=== PATIENT | male | born 1960 | race Caucasian/White ===

== ENCOUNTER 2018-03-12 10:29 | Inpatient (IN) | payer BC ==
--- NOTE | 2018-03-01 21:35 | HP ---
HISTORY AND PHYSICAL: DATE OF SURGERY: 03/12/18 DATE OF OFFICE VISIT: 02/27/18 SURGEON: Chanel Jones MD * (DICTATED BY ADEBAYO MCBRIDE) PROCEDURE: Left total hip arthroplasty. CHIEF COMPLAINT: Left hip pain. HISTORY OF PRESENT ILLNESS: Mr. Chow is a 58-year-old gentleman with complaints of left hip pain. He has failed conservative management and elected to proceed with a left total hip arthroplasty, which is scheduled for 03/12/[address] Jones. PAST MEDICAL HISTORY: Hypertension, high cholesterol, sleep apnea. PAST SURGICAL HISTORY: Unknown prior left hip surgery and hernia repair. CURRENT MEDICATIONS: 1. Claritin 10 mg daily. 2. Flonase as needed. 3. Atorvastatin calcium 20 mg q.h.s. 4. Amlodipine/benazepril 10/40 mg daily. 5. Ciprodex ear drops as needed. 6. Aleve as needed. ALLERGIES: None. FAMILY HISTORY: Diabetes and dementia. SOCIAL HISTORY: He is a 58-year-old gentleman, lives with his . He does not smoke or use drugs. He uses occasional alcohol. REVIEW OF SYSTEMS: A complete 14-point of review of systems is reviewed with the patient. It was all negative or noncontributory. He denies history of DVT , PE, hepatitis, HIV or anesthesia problems. PHYSICAL EXAMINATION GENERAL: He is a well developed, well nourished in no acute distress. VITAL SIGNS: He stands 5 feet 5 inches tall, weighs 218 pounds. His blood pressure is 124/80, heart rate is 76. HEENT: Normocephalic, atraumatic. NECK: Supple. No palpable lymph nodes. PULMONARY: Lungs are clear to auscultation bilaterally. CARDIO: Regular rate and rhythm. Strong S1, S2. ABDOMEN: Soft, nontender, and nondistended. NEUROLOGIC: He is alert and oriented x3. Cranial nerves II through XII are intact. MUSCULOSKELETAL: Left lower extremity, the skin is intact. There are no open wounds or abrasions. He walks with an antalgic type gait favoring his left hip. He has decreased internal and external rotation of the left hip. 2+ dorsalis pedis pulses. Intact sensation in his lower extremities. Muscle group strengths are intact at 5/5. ASSESSMENT AND PLAN: Mr. Chow is a 58-year-old gentleman with complaints of left hip pain secondary to end-stage osteoarthritis. He has failed conservative management and elected to proceed with a left total hip arthroplasty, which is scheduled with Dr. Jones on 03/12/18. Dr. Jones discussed the risks and benefits of the surgery at today's visit and all of his questions were answered. He will follow up with Dr. Jones 2 weeks after the surgery. ADEBAYO MCBRIDE [id number]/[facility] #: [id number] MTDD
[~2018-03-12 10:29] MED LIST: Buffered Lidocaine 0.9% SYRIN* 5 ML/SYR SYRINGE INTRADERM ONE
[2018-03-12] MEDS ORDERED: Buffered Lidocaine 0.9% SYRIN* 5 ML/SYR SYRINGE ONE ×2 (10:40→10:57)
[2018-03-12] MEDS ORDERED: ceFAZolin 2 GM PREMIX (*) 0 GM/0 ML BAG IVPB ONE (10:40)
[2018-03-12] MEDS ORDERED: ceFAZolin 2 GM PREMIX (*) 2 GM/50 ML BAG IVPB ONE (10:57)
[2018-03-12] MEDS ORDERED: Midazolam* 1 MG/ML 5 ML VIAL (5 MG) ONE ×2 (13:03→13:53)
[2018-03-12] MEDS ORDERED: fentaNYL* 50 MCG/ML 2 ML VIAL (100 MCG VIAL) ONE (13:28)
[2018-03-12] MEDS ORDERED: Dexamethasone IV* 4 MG/ML 1 ML (4 MG) ONE (13:45)
[2018-03-12] MEDS ORDERED: Phenylephrine IV* 40 MCG/ML 10 ML SYRINGE ONE (14:36)
--- NOTE | 2018-03-12 15:28 | RAD ---
INDICATION: Left hip arthroplasty COMPARISON: None TECHNIQUE: Crosstable lateral portable view left hip was obtained for operative control FINDINGS: There is placement of the acetabular cup and the femoral stem is been placed for sizing.
[2018-03-12] MEDS ORDERED: diPHENhydraMINE IV* 50 MG/ML 1 ml VIAL (BENADRYL) IV PRN (16:07)
[2018-03-12] MEDS ORDERED: Morphine VIAL* 4 MG/ML VIAL (1 ml vial) IV PRN (16:07)
[2018-03-12] MEDS ORDERED: Ondansetron 40 MG VIAL* 2 MG/ML 20 ML VIAL IV PRN (16:07)
[2018-03-12] MEDS ORDERED: Bisacodyl SUPP* 10 MG SUPP PR PRN (16:07)
[2018-03-12] MEDS ORDERED: Acetaminophen TAB* 325 MG PO PRN (16:07)
[2018-03-12] MEDS ORDERED: Cyclobenzaprine TAB* 10 MG PO PRN (16:07)
[2018-03-12] MEDS ORDERED: Magnesium Hydroxide LIQ* 30 ML UDC PO PRN (16:07)
[2018-03-12] MEDS ORDERED: HYDROcodone/ACETAMIN 5-325 MG* 1 TAB PO PRN (16:11)
[2018-03-12] MEDS ORDERED: Naloxone* 0.4 MG/ML 1 ML VIAL IV PRN (16:11)
[2018-03-12] MEDS ORDERED: fentaNYL* 50 MCG/ML 2 ML VIAL (100 MCG VIAL) IV PRN (16:11)
[2018-03-12] MEDS ORDERED: Ondansetron INJ* 2 MG/ML VIAL IV PRN (16:11)
[2018-03-12] MEDS ORDERED: HYDROmorphone INJ* 1 MG/ML CARPUJECT SYRINGE IV PRN (16:11)
[2018-03-12] MEDS ORDERED: oxyCODONE TAB* 5 MG TAB PO PRN (16:11)
[2018-03-12] MEDS ORDERED: Ondansetron ODT TAB* 4 MG PO PRN (16:11)
[2018-03-12] MEDS ORDERED: oxyCODONE/Acetamin 5/325 MG* TAB ONE (16:40)
[2018-03-12] MEDS: oxyCODONE/Acetamin 5/325 MG* TAB PO PRN ×2 (16:42→20:57)
--- NOTE | 2018-03-12 16:47 | RAD ---
INDICATION: The patient is status post left total hip arthroplasty TECHNIQUE: Portable AP view of the pelvis and 3 views of the left hip was obtained. FINDINGS: The recently installed left hip prosthesis is anatomically aligned in the AP and lateral projections. There is no radiographically visible periprosthetic fracture. Advanced degenerative changes are noted at the right hip including sclerotic bony remodeling of the femoral head and marginal osteophyte formation. IMPRESSION: Anatomic alignment of left hip prosthesis.
[2018-03-12] MEDS ORDERED: Warfarin TAB(*) 6 MG PO ONE (17:00)
[2018-03-12] MEDS ORDERED: hydrALAZINE IV* 20 MG/ML VIAL IV SLOW PU PRN (17:17)
[2018-03-12] MEDS: Magnesium Hydroxide LIQ* 30 ML UDC PO SCH (20:57)
[2018-03-12] MEDS: Docusate CAP* 100 MG PO SCH (20:59)
[2018-03-12] MEDS: ceFAZolin 1 GM in Dextrose (*) 1 GM/50 ML BAG IVPB SCH (21:09)
[2018-03-12] MEDS: oxyCODONE TAB* 5 MG TAB PO PRN (22:42)
--- NOTE | 2018-03-12 23:14 | CONS ---
CC: Dr. Thao; Dr. Jones * CONSULTATION REPORT: DATE OF CONSULT: 03/12/18 PRIMARY CARE PROVIDER: Dr. Thao ORTHOPEDIC SURGEON: Dr. Jones. REASON FOR CONSULT: Medical co-management. HISTORY OF PRESENT ILLNESS: Mr. Chow is a 58-year-old male who has a history of hypertension, hyperlipidemia, obstructive sleep apnea, not treated with positive pressure ventilation and allergic rhinitis who is seen today after he underwent an elective left total hip arthroplasty. The patient states that he is doing well. He does feel a little bit loopy and confused. He denies , however, any chest pain, shortness of breath, abdominal pain, nausea, vomiting or lightheadedness. He does state that he has a burning sensation to his left lateral hip where the incision is. The patient otherwise has no complaints at this time. PAST MEDICAL HISTORY: 1. Hypertension. 2. Hyperlipidemia. 3. Obstructive sleep apnea - not treated. PAST SURGICAL HISTORY: 1. Prior left hip surgery. 2. Hernia repair. HOME MEDICATIONS: 1. Claritin 10 mg p.o. daily. 2. Flonase as needed for allergic rhinitis. 3. Atorvastatin 20 mg p.o. q.h.s. 4. Amlodipine/benazepril 10/40 one tab p.o. daily. 5. Ciprodex ear drops as needed. 6. Aleve as needed ALLERGIES: None. FAMILY HISTORY: Positive for diabetes and dementia. SOCIAL HISTORY: The patient is . He lives with his . He does not smoke. He drinks alcohol on occasion. REVIEW OF SYSTEMS: A complete 11-system review of systems was obtained. Pertinent positives and negatives are as HPI and otherwise negative. PHYSICAL EXAM: Blood pressure 125/82, pulse 67, respirations 16, temp 98.2, O2 sat 96% on room air. General: The patient is a well-developed, obese, middle- aged male seen lying in the stretcher in the recovery unit, in no acute distress. HEENT: Pupils are equal and round. Extraocular muscles are intact. Oropharynx is clear. Oral mucosa is moist. There is no submandibular, cervical or supraclavicular adenopathy. Thyroid is not enlarged. No thyroid nodules noted. Cardiac: Normal S1, S2. Regular rate and rhythm. I do not appreciate any murmurs. There is no lower extremity edema. Pulmonary: Lungs are clear to auscultation anteriorly and at the lateral bases. Abdomen: Bowel sounds are present. Abdomen is soft, nontender, nondistended. Musculoskeletal : The patient moves both upper extremities symmetrically. Lower extremity range of motion is not tested. Skin is warm and dry. There are no rashes. There is a clean, dry dressing over the left lateral hip wound. Neuro: Cranial nerves II through XII are grossly intact. Sensation is intact to light touch throughout. Strength is 5/5 and symmetric in the upper extremities. Lower extremity strength is not tested as the patient is immediately postop. Psych: The patient is alert. He is oriented x3. Affect is appropriate. DIAGNOSTIC STUDIES/LAB DATA: None. ASSESSMENT AND PLAN: Mr. Chow is a 58-year-old male with a history of hypertension, hyperlipidemia and obstructive sleep apnea, who is seen immediately postop for medical co-management consultation. 1. Elective left total hip arthroplasty. Management per Orthopedics. 2. Hypertension. The patient's blood pressure is under excellent control. I am going to hold off on restarting his amlodipine/benazepril until tomorrow morning when I can evaluate his blood pressures. His blood pressures currently without the medication on-board are quite good. I assume tomorrow morning he will be more hypertensive, at which point it will be appropriate to add back his home medication. In the meantime, he will have p.r.n. hydralazine available for markedly elevated blood pressures overnight. 3. Hyperlipidemia. We will continue Lipitor. 4. Allergic rhinitis. We will continue the Claritin, but hold his Flonase, which can be resumed once he returns home. 5. DVT prophylaxis. The patient will be started on Lovenox tomorrow, 03/13/18. 6. Code status is full. TIME SPENT: Forty minutes were spent on this consultation. [id number]/[facility] #: [id number] JESSY
[2018-03-13] MEDS: ceFAZolin 1 GM in Dextrose (*) 1 GM/50 ML BAG IVPB SCH ×2 (05:23→14:54)
[2018-03-13] MEDS: oxyCODONE/Acetamin 5/325 MG* TAB PO PRN ×3 (06:13→21:14)
[2018-03-13 06:52] LABS: Hematocrit 40 % (42-52); Hemoglobin 13.8 g/dl (14.0-18.0); Mean Platelet Volume 7.2 um3 (7.4-10.4); Platelet Count 202 10^3/ul (150-450)
[2018-03-13 07:02] LABS: INR 0.98 (0.77-1.02)
[2018-03-13 07:13] LABS: EGFR Non-African American 74.8 (>60)
[2018-03-13] MEDS: Vitamin THERAPEUTIC TAB PO SCH (08:01)
[2018-03-13] MEDS: Docusate CAP* 100 MG PO SCH ×2 (08:01→21:14)
[2018-03-13] MEDS: oxyCODONE TAB* 5 MG TAB PO PRN ×2 (08:02→11:46)
--- NOTE | 2018-03-13 11:03 | PN ---
Progress Note - Progress Note Date of Service: 03/13/18 SOAP: Subjective: []Patient seen at bedside. He feels very well. Denies Chest pain, shortness of breath or dizziness. Objective: [] Vital Signs Temp 97.8 F 03/13/18 07:25 Pulse 82 03/13/18 07:25 Resp 20 03/13/18 08:02 BP 123/79 03/13/18 07:25 Pulse Ox 96 03/13/18 07:25 Intake & Output 03/12/18 03/13/18 03/13/18 18:59 06:59 18:59 Intake Total 3140 1500 360 Output Total 600 2075 225 Balance 2540 -575 135 Weight 215 lb Intake: IV Fluids 2900 950 LR 2900 950 IVPB 50 ABX - CEFAZOLIN 50 Oral 240 500 360 Output: Urine 225 Obrien 350 2075 Estimated Blood Loss 250 Laboratory Last Values Hgb 13.8 g/dl (14.0-18.0) L 03/13/18 06:28 Hct 40 % (42-52) L 03/13/18 06:28 Plt Count 202 10^3/ul (150-450) 03/13/18 06:28 MPV 7.2 um3 (7.4-10.4) L 03/13/18 06:28 INR (Anticoag Therapy) 0.98 (0.77-1.02) 03/13/18 06:29 Sodium 136 mmol/L (135-145) 03/13/18 06:28 Potassium 4.1 mmol/L (3.5-5.0) 03/13/18 06:28 Chloride 102 mmol/L (101-111) 03/13/18 06:28 Carbon Dioxide 25 mmol/L (22-32) 03/13/18 06:28 Anion Gap 9 mmol/L (2-11) 03/13/18 06:28 BUN 14 mg/dL (6-24) 03/13/18 06:28 Creatinine 1.02 mg/dL (0.67-1.17) 03/13/18 06:28 Est GFR ( Amer) 96.1 (>60) 03/13/18 06:28 Est GFR (Non-Af Amer) 74.8 (>60) 03/13/18 06:28 BUN/Creatinine Ratio 13.7 (8-20) 03/13/18 06:28 Glucose 190 mg/dL (70-100) H 03/13/18 06:28 Calcium 9.3 mg/dL (8.6-10.3) 03/13/18 06:28 General: Well appearing, NAD LLE: Dressing CDI without surrounding erythema. Thigh soft. DF/PF intact. Sensation intact distally. DP 2+. Capillary refill less than two seconds distally. BL LE: Calves supple and nontender without erythema, edema or palpable cords. Assessment: []POD 1 SP left total hip arthroplasty 03/13 Dr Jones Plan: []WBAT PT/OT Hip precautions Lovenox, Coumadin 6 mg today
[2018-03-13] MEDS: Atorvastatin* 20 MG TAB PO SCH (11:45)
[2018-03-13] MEDS: Enoxaparin(*) 40 MG/0.4 ML SYR SUBCUT SCH (11:46)
[2018-03-13] MEDS: Magnesium Hydroxide LIQ* 30 ML UDC PO SCH ×2 (11:47→21:13)
[2018-03-13] MEDS: CMCS LoraTADine TAB(NF) 10 MG TAB PO SCH (11:49)
--- NOTE | 2018-03-13 13:15 | OP ---
DATE OF OPERATION: 03/12/18 - ROOM #346 DATE OF : 58 SURGEON: Chanel Jones MD [employer]ERSON[employer] REP: ADEBAYO Beltran. Mr. Banegas did help throughout the procedure with preparation of the leg, wound retraction, manipulation of the hip and wound closure. ANESTHESIOLOGIST: Dr. Malone. ANESTHESIA: Spinal. 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 OPERATIVE PROCEDURE: Left total hip arthroplasty. ESTIMATED BLOOD LOSS: 300 cc. COMPLICATIONS: None. SPECIMENS: Femoral head and acetabular reaming sent to Pathology. HARDWARE USED: This is [employer]oca uncemented total hip arthroplasty hardware. For the cup, a Tritanium cluster hole shell 56D a single 20-mm cancellous bone screw. For the insert, a Trident X3 polyethylene insert 0-degree 36D. For the stem, an Accolade TMZF size 4 with a 132-degree neck. For the head, a Biolox delta ceramic V40 femoral head 36 +2.5. BRIEF HISTORY/INDICATION: Mr. Chow is a 58-year-old gentleman with years of severe left hip pain. As a young gentleman, he developed avascular necrosis of the left hip. He was treated surgically with a cord decompression that eventually went on to develop severe arthritis. The patient had failed conservative treatment with the anti-inflammatories, pain medication, and physical therapy. His radiographs showed severe end-stage avascular necrosis and joint space narrowing. Due to continued pain and decreased quality of life , he elected to undergo a left total hip arthroplasty. Informed consent was obtained from the patient. He understood the risks of surgery included, but were not limited to bleeding, infection, damage to nearby structures, continued pain, need for further surgery, intraoperative fracture, nerve palsy, hardware failure or loosening, dislocation, leg length discrepancy, stroke, heart attack , blood clot, and . He wished to proceed. INTRAOPERATIVE FINDINGS: Intraoperatively, the patient was noted to have severe end-stage arthritis. He had deformity of the femoral head. He had a complete loss of cartilage along the femoral head and acetabulum with extensive osteophyte formation around the acetabulum. DESCRIPTION OF PROCEDURE: Mr. Chow was identified in the preanesthesia unit. His left lower extremity was marked as the correct operative side. Informed consent was signed and placed in the chart. The patient was taken to the operating room and placed under spinal anesthesia. A Obrien catheter was placed. The patient was placed in a right lateral decubitus position on the pegboard. All bony prominences were well padded. Left lower extremity was prepped and draped in the usual sterile fashion. Preop time-out was made to correctly identify the patient's side and site. Appropriate perioperative antibiotics were given within 1 hour of incision. A 12-cm posterior hip incision was made with a 10 blade. New 10 blade was used to incise the lateral fascia in line with the skin incision. A Charnley retractor was placed. The piriformis and conjoint tendons were identified. These were elevated off the posterolateral femur and tagged with #5 Ethibond. Next, electrocautery was used to make a standard posterolateral capsular flap and this was also tagged with #5 Ethibond. The hip was carefully dislocated. Lesser troch to the center of the femoral head was estimated to be approximately 62 mm. Oscillating saw was used to make the femoral neck cut. The femur was carefully retracted anteriorly. After appropriate placement of retractors, the acetabulum was well visualized. Long-handled knife was used to remove any remaining labrum. The acetabulum was sequentially reamed up to a size 55. A 55 reamer obtained with bleeding subchondral bone bed. The 55 trial had excellent fit. Final implant chosen was a Tritanium cluster hole shell 56D. This was impacted into the acetabulum without difficulty. There was excellent stability as well as appropriate anteversion and abduction angle. A single 20-mm screw was placed in the superior posterior quadrant for extra stability. A 36E trident X3 0-degree polyethylene liner was chosen as the appropriate liner. This was impacted into the acetabulum without difficulty. Stability of the liner was checked and rechecked and noted to be stable. An osteotome was used to remove inferior and posterior osteophytes. Next, attention was turned to preparation of the femoral canal. Canal finder was used to enter the proximal femur. The femur was sequentially broached up to a size 4. Size 4 broach had excellent stability and appropriate anteversion. A 36 +0 femoral head was chosen as the trial. Lesser troch to the center of the femoral head measured approximately 60 mm. The hip was reduced and taken through a range of motion. The hip was stable in all positions. There was appropriate soft tissue tension and leg lengths. The hip was carefully dislocated. All trials were removed. Final implant chosen was an Accolade TMZF size 4 with a 132-degree neck. This was impacted into the femoral canal without difficulty. There was appropriate stability and anteversion. Final head chosen was a 36 +2.5 Biolox delta V40 femoral head. This was impacted on to the femoral neck. Lesser troch to the center of the femoral head measured 62 mm. The hip was reduced and taken through a range of motion. The hip was stable in all positions. Soft tissue tension was improved. The hip was carefully washed with sterile saline. Previously tagged tendons and capsule were reapproximated with a posterolateral femur through two trochanteric drill holes. The lateral fascial layer was closed using interrupted #1 Vicryls. The rest of the incision was closed in a layered fashion using 0 and 2-0 Vicryls. Skin was closed using running 3-0 Monocryl and Dermabond. Sterile Adaptic, 4x4s, and paper tape were used to cover the incision. The patient's anesthesia was reversed without difficulty. He was taken to the PACU in stable condition. Intended weightbearing will be weightbearing as tolerated. Intended DVT prophylaxis will be Coumadin with a Lovenox bridge. [id number]/[facility] #: [id number] JESSY
[2018-03-13] MEDS ORDERED: Warfarin TAB(*) 6 MG PO ONE (18:00)
[2018-03-14] MEDS: oxyCODONE TAB* 5 MG TAB PO PRN ×2 (02:55→11:06)
[2018-03-14 06:37] LABS: Hematocrit 34 % (42-52); Hemoglobin 11.8 g/dl (14.0-18.0); Mean Platelet Volume 6.9 um3 (7.4-10.4); Platelet Count 177 10^3/ul (150-450)
[2018-03-14 06:46] LABS: INR 1.29 (0.77-1.02)
[2018-03-14 08:16] VITALS: BP 123/75
[2018-03-14] MEDS: Docusate CAP* 100 MG PO SCH (08:21)
[2018-03-14] MEDS: oxyCODONE/Acetamin 5/325 MG* TAB PO PRN (08:21)
[2018-03-14] MEDS: Magnesium Hydroxide LIQ* 30 ML UDC PO SCH (08:21)
[2018-03-14] MEDS: Vitamin THERAPEUTIC TAB PO SCH (08:21)
--- NOTE | 2018-03-14 09:20 | PN ---
Progress Note - Progress Note Date of Service: 03/14/18 SOAP: Subjective: []Patient seen OOB in chair. He feels very well with minimal pain using both oxycodone and percocet. He desires DC home today. Denies chest pain, shortness of breath, dizziness or leg numbness. Objective: [] Vital Signs Temp 98.2 F 03/14/18 07:33 Pulse 83 03/14/18 07:33 Resp 16 03/14/18 08:21 BP 123/75 03/14/18 07:33 Pulse Ox 97 03/14/18 08:51 Intake & Output 03/13/18 03/14/18 03/14/18 18:59 06:59 18:59 Intake Total 1245 550 Output Total 875 1225 Balance 370 -675 Intake: IV Fluids 20 LR 20 IVPB 55 ABX - CEFAZOLIN 55 Oral 1170 550 Output: Urine 875 1225 Other: Estimated Void Large Laboratory Last Values Hgb 11.8 g/dl (14.0-18.0) L 03/14/18 06:13 Hct 34 % (42-52) L 03/14/18 06:13 Plt Count 177 10^3/ul (150-450) 03/14/18 06:13 MPV 6.9 um3 (7.4-10.4) L 03/14/18 06:13 INR (Anticoag Therapy) 1.29 (0.77-1.02) H 03/14/18 06:13 Sodium 136 mmol/L (135-145) 03/13/18 06:28 Potassium 4.1 mmol/L (3.5-5.0) 03/13/18 06:28 Chloride 102 mmol/L (101-111) 03/13/18 06:28 Carbon Dioxide 25 mmol/L (22-32) 03/13/18 06:28 Anion Gap 9 mmol/L (2-11) 03/13/18 06:28 BUN 14 mg/dL (6-24) 03/13/18 06:28 Creatinine 1.02 mg/dL (0.67-1.17) 03/13/18 06:28 Est GFR ( Amer) 96.1 (>60) 03/13/18 06:28 Est GFR (Non-Af Amer) 74.8 (>60) 03/13/18 06:28 BUN/Creatinine Ratio 13.7 (8-20) 03/13/18 06:28 Glucose 190 mg/dL (70-100) H 03/13/18 06:28 Calcium 9.3 mg/dL (8.6-10.3) 03/13/18 06:28 General: Well appearing, NAD LLE: Dressing CDI. Dressing changed. Incision CDI. Thigh soft. DF/PF intact. Sensation intact distally. DP 2+. Capillary refill less than two seconds distally. BL LE: Calves supple and nontender without erythema, edema or palpable cords. Assessment: []POD 2 SP left total hip arthroplasty 03/13 Dr Jones Plan: []WBAT PT/OT Hip precautions Lovenox, Coumadin 6 mg today DC to home today
[2018-03-14] MEDS: Atorvastatin* 20 MG TAB PO SCH (11:06)
[2018-03-14] MEDS: CMCS LoraTADine TAB(NF) 10 MG TAB PO SCH (11:06)
[2018-03-14] MEDS: Enoxaparin(*) 40 MG/0.4 ML SYR SUBCUT SCH (11:07)
--- NOTE | 2018-03-14 11:55 | PN ---
Subjective Date of Service: 03/14/18 - Time: 0830 Interval History: Pt is feeling well. He states he has been doing well with PT. He denies any CP or SOB. Objective Vital Signs - 8 hr 03/14/18 03/14/18 03/14/18 05:00 07:33 08:00 Temperature 98.2 F Pulse Rate 83 Respiratory 18 16 18 Rate Blood Pressure 123/75 (mmHg) O2 Sat by Pulse 97 97 Oximetry 03/14/18 03/14/18 03/14/18 08:21 08:51 11:01 Temperature Pulse Rate Respiratory 16 16 Rate Blood Pressure (mmHg) O2 Sat by Pulse 97 Oximetry 03/14/18 11:06 Temperature Pulse Rate Respiratory 18 Rate Blood Pressure (mmHg) O2 Sat by Pulse Oximetry Oxygen Devices in Use Now: None Appearance: Middle aged male sitting up in a recliner, NAD Eyes: No Scleral Icterus Ears/Nose/Mouth/Throat: Mucous Membranes Moist Respiratory: Symmetrical Chest Expansion and Respiratory Effort, Clear to Auscultation Cardiovascular: NL Sounds; No Murmurs; No JVD, RRR, No Edema Abdominal: NL Sounds; No Tenderness; No Distention Extremities: No Clubbing, Cyanosis Skin: No Nodules or Sclerosis Neurological: Alert and Oriented x 3 Result Diagrams: 03/14/18 06:13 03/13/18 06:28 Assess/Plan/Problems-Billing Mr Chow is a 58 yo M who has a h/o HTN, HLD and SHINE who was admitted post elective total hip replacement. - Patient Problems (1) Status post total replacement of left hip Status: Acute Code(s): Z96.642 - PRESENCE OF LEFT ARTIFICIAL HIP JOINT SNOMED Code(s): 403937219053 Comment: Management per orthopedics. (2) HTN (hypertension) Status: Acute Code(s): I10 - ESSENTIAL (PRIMARY) HYPERTENSION SNOMED Code(s) : 06107711 Comment: Under excellent control. Continue home medication regimen. (3) HLD (hyperlipidemia) Status: Acute Code(s): E78.5 - HYPERLIPIDEMIA, UNSPECIFIED SNOMED Code(s): 40182844 Comment: Continue lipitor. (4) DVT prophylaxis Status: Acute Code(s): FRY8189 - SNOMED Code(s): 569891540 Comment: Coumadin per orthopedics. (5) Full code status Status: Acute Code(s): Z78.9 - OTHER SPECIFIED HEALTH STATUS SNOMED Code(s) : 629002397 Status and Disposition: d/c home today per orthopedics
--- NOTE | 2018-03-15 08:51 | DS ---
DISCHARGE SUMMARY: DATE OF ADMISSION: 03/12/18 DATE OF DISCHARGE: 03/14/18 DATE OF OPERATION: 03/12/18 PROVIDER: Dr. 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 OPERATIVE PROCEDURE: Left total hip arthroplasty. HISTORY: Mr. Chow is a 58-year-old gentleman with years of increasingly severe left hip pain. As a young gentleman, he developed avascular necrosis of the left hip. He was treated surgically with a cord decompression that eventually went on to develop severe arthritis. The patient had failed conservative management and elected to undergo a left total hip arthroplasty. HOSPITAL COURSE: The patient was admitted to [facility] on . He underwent a left total hip arthroplasty without complication. He recovered briefly in the PACU and then was transferred to the short-stay surgical unit in stable condition. He was followed by hospitalist service, Physical Therapy, Occupational therapy during his stay. On postop day#1, he is well appearing, in no acute distress. His dressing was clean, dry, and intact without any surrounding erythema. Thigh was soft. Dorsiflexion and plantar flexion intact. Sensation was intact distally. DP pulse 2+. Capillary refill less than 2 seconds. Postop day#1, he was well appearing, in no acute distress. Vitals included a temperature of 98.2, pulse 83, respiratory rate 16 , blood pressure 123/75, pulse ox 97%. Hemoglobin 11.8, hematocrit of 34. INR 1.29. The patient's dressing was clean, dry, and intact. The dressing was changed. Incision clean, dry, and intact. The patient was deemed to be medically and orthopedically stable for discharge home. DISCHARGE MEDICATIONS: 1. Loratadine 10 mg p.o. daily. 2. Fluticasone nasal spray 50 mcg 2 sprays both nares q.a.m. 3. Atorvastatin 20 mg p.o. daily. 4. Lotrel 10/40 one cap p.o. daily. 5. Acetaminophen 650 mg p.o. q.4 hours p.r.n., max daily dose 4000 mg from all sources. 6. Docusate 100 mg p.o. b.i.d. p.r.n. 7. Oxycodone 5 mg tab, take 1 to 2 tabs every 4 hours as needed, max daily dose of 4. 8. Percocet 5/325 one to two tabs every 4 to 6 hours as needed, max daily dose of 10. 9. Warfarin 2 mg tablets, 1 to 3 tablets daily. Dose depends on INR. DISCHARGE INSTRUCTIONS: Weightbearing as tolerated. Hip precautions. Visiting nurse to do wound check and check INR on Mondays and . Last INR was 1.29. Dosing instructions for Coumadin: 03/14/18, 6 mg; 03/15/18, 4 mg; 03/16/18, 2 mg; 03/17/18, 4 mg. Pain control: Percocet 5/325 one to two tabs every 4 to 6 hours as needed for pain, max 10 tabs per day. Follow up with Dr. Jones in 10 to 14 days. ADEBAYO NARAYAN [id number]/[facility] #: [id number] MTDD
== END 2018-03-14 11:28 | disposition home health service (06) | DRG 301 ==
LOC: AA 10:29 → SSU 16:08
PROVIDERS: ADMIT Orthopaedic Surgery Adult Reconstructive Orthopaedic Surgery; ATTEND Orthopaedic Surgery Adult Reconstructive Orthopaedic Surgery
PROC: 0SRB04A Replacement of Left Hip Joint with Ceramic on Polyethylene Synthetic Substitute, Uncemented, Open Approach (ICD-10-PCS; principal; 2018-03-12 13:00)
DX: M16.0 Bilateral primary osteoarthritis of hip (principal); M87.852 Other osteonecrosis, left femur; I10 Essential (primary) hypertension; E78.00 Pure hypercholesterolemia, unspecified; G47.33 Obstructive sleep apnea (adult) (pediatric); E66.9 Obesity, unspecified; M25.752 Osteophyte, left hip; J30.9 Allergic rhinitis, unspecified; Z86.19 Personal history of other infectious and parasitic diseases; Z83.3 Family history of diabetes mellitus; Z82.0 Family history of epilepsy and other diseases of the nervous system; Z80.7 Family history of other malignant neoplasms of lymphoid, hematopoietic and related tissues; Z68.34 Body mass index [BMI] 34.0-34.9, adult; Z72.89 Other problems related to lifestyle; Z79.01 Long term (current) use of anticoagulants; Z81.8 Family history of other mental and behavioral disorders
CPT/HCPCS: 36415; 62325; 72170; 80048; 85014; 85018; 85049; 85610; 88304; 88311; A9270-GY; C1713; C1776; J0690; J1100; J1650; J2250; J3010

== ENCOUNTER 2024-08-08 09:15 | Observation (INO) ==
[~2024-08-08 09:15] MED LIST changes: -Buffered Lidocaine 0.9% SYRIN* 5 ML/SYR SYRINGE INTRADERM ONE; +Midazolam 2 mg/2 ml VIAL 1 mg/ml 2 ml VIAL (2 mg) ONE; +NS 0.45% 1000 ml BAG 1,000 ML IV SCH; +Naloxone 0.4 mg VIAL 0.4 mg/ml 1 ml VIAL IV PRN; +Ondansetron 4 mg VIAL 2 MG/ML 2 ml VIAL IV PRN; +fentaNYL 100 mcg/2 ml 50 MCG/ML VIAL IV PRN
[2024-08-08] MEDS: Buffered Lidocaine 1% SYRIN 1 ml INTRADERM ONE (09:38)
[2024-08-08] MEDS ORDERED: Dexamethasone IV 4 MG/ML VIAL 1 ml VIAL ONE (09:53)
[2024-08-08] MEDS ORDERED: Lidocaine 2% PF 5 ML VIAL ONE (09:53)
[2024-08-08] MEDS ORDERED: Rocuronium 50 mg VIAL 10 mg/ml 5 ml VIAL (50 mg) ONE (09:53)
[2024-08-08] MEDS ORDERED: Ondansetron 4 mg VIAL 2 MG/ML 2 ml VIAL ONE (09:53)
[2024-08-08] MEDS ORDERED: Propofol 10 MG/ML 20 ML BTL ONE (09:53)
[2024-08-08] MEDS ORDERED: fentaNYL 100 mcg/2 ml 50 MCG/ML VIAL ONE (09:53)
[2024-08-08 10:19] LABS: Rapid COVID-19 Molecular Undetected (Undetected)
[2024-08-08] MEDS ORDERED: ceFAZolin 2 GM PREMIX 2 GM/50 ML BAG ONE (10:28)
[2024-08-08] MEDS ORDERED: Tranexamic Acid 1 GM/100ML BAG 2,000 MG/200 ML BAG IV ONE (10:28)
[2024-08-08] MEDS: Lactated Ringers 1000 ml BAG 1,000 ML IV SCH ×2 (10:33→16:45)
[2024-08-08] MEDS ORDERED: ROPIVACAINE 5 MG/ML 30 ML BTL (0.5%) ONE (12:36)
[2024-08-08] MEDS ORDERED: Ondansetron 4 mg VIAL 2 MG/ML 2 ml VIAL IV PRN (13:27)
[2024-08-08] MEDS ORDERED: Calcium Carb (TUMS) 500 mg CHEW TAB PO PRN (13:27)
[2024-08-08] MEDS ORDERED: Lactulose 30 ml UDC PO PRN (13:27)
[2024-08-08] MEDS ORDERED: Ondansetron ODT 4 mg TAB 4 MG TAB PO PRN (13:27)
[2024-08-08] MEDS ORDERED: Magnesium Hydroxide LIQ 30 ML UDC PO PRN (13:27)
[2024-08-08] MEDS ORDERED: Morphine 2 MG/ML SYRINGE IV PRN (13:27)
[2024-08-08] MEDS: Acetaminophen IV 1 GM/100ML 1,000 MG/100 ML BAG IV ONE (17:50)
[2024-08-08] MEDS ORDERED: Dextrose 50% Syringe 50 ml 25 GM/50 ML SYRINGE IV PUSH PRN (19:40)
[2024-08-08] MEDS: Magnesium Hydroxide LIQ 30 ML UDC PO SCH (19:56)
[2024-08-08] MEDS: ceFAZolin 2 GM PREMIX 2 GM/50 ML BAG IV SCH (20:07)
[2024-08-09 06:17] LABS: Hematocrit 38.8 % (38-53); Hemoglobin 13.2 g/dL (13.2-16.3); Mean Platelet Volume 7.5 fL (7.5-11.2); Platelet Count 185 10^3/uL (150-450)
[2024-08-09 06:35] LABS: Calcium 9.1 mg/dL (8.6-10.3); Creatinine, Serum 1.05 mg/dL (0.67-1.17); Potassium 4.5 mmol/L (3.5-5.0); eGFR CKD-EPI 78.8 (>60)
[2024-08-09] MEDS: Vitamin THERAPEUTIC TAB PO SCH (08:06)
[2024-08-09] MEDS: Fluticasone NASAL SPRAY 50MCG 16 gm SPRAY BTL BOTH NARES SCH (08:14)
[2024-08-09 10:22] VITALS: BP 112/63
== END 2024-08-09 13:24 | disposition home or self-care (01) ==
LOC: SSU 09:15 → OR 09:15
PROVIDERS: ADMIT Orthopaedic Surgery Adult Reconstructive Orthopaedic Surgery; ATTEND Orthopaedic Surgery Adult Reconstructive Orthopaedic Surgery